=== PATIENT | female | born 2000 | race Two or more races ===

== ENCOUNTER 2024-12-13 16:28 | Emergency (ER) | payer OTHER ==
[~2024-12-13] VITALS: Ht 172.7 cm; Wt 99.8 kg
[2024-12-13] MEDS ORDERED: DEXTROSE 50 % IN WATER 0.5 G/ML VIAL IV ONE (16:57)
[2024-12-13] MEDS ORDERED: 0.9 % SODIUM CHLORIDE 1,000 ML IV ONE (18:15)
[2024-12-13] MEDS ORDERED: KETOROLAC TROMETHAMINE 30 MG VIAL IV ONE (18:15)
[2024-12-13] MEDS ORDERED: ONDANSETRON HCL 2 MG/ML VIAL IV ONE (18:15)
[2024-12-13] MEDS ORDERED: FAMOtidine 10 MG/ML (4ML VIAL) IV ONE (18:15)
[2024-12-13] MEDS ORDERED: CIPROFLOXACIN IN 5 % DEXTROSE 400 MG/200 ML PIGGYBAG IV ONE ×2 (18:15→18:33)
[2024-12-13] MEDS ORDERED: KETOROLAC TROMETHAMINE 30 MG VIAL ONE (18:32)
[2024-12-13] MEDS ORDERED: FAMOTIDINE/PF 20 MG/2 ML VIAL ONE (18:33)
[2024-12-13] MEDS ORDERED: ONDANSETRON HCL 2 MG/ML VIAL ONE (18:33)
[2024-12-13 19:04] LABS: BASO % 0.2 % (0.1-1.2); EOS # 0.03 (0.04-0.54); EOS % 0.3 % (0.7-7.0); LYMPH # 0.42 (1.18-3.74); LYMPH % 3.7 % (19.3-53.1); MEAN PLATELET VOLUME 9.80 fl (9.4-12.4); MONO # 0.54 (0.24-0.82); MONO % 4.7 % (4.7-12.5); NEUT # 10.43 (1.56-6.13); NEUT % 90.8 % (34.0-71.1); RED CELL DISTRIBUTION WIDTH 13.2 % (11.6-14.4)
[2024-12-13 19:34] LABS: ALT/SGPT 39.0 U/L (12-78); AST/SGOT 14.0 U/L (15-37); BILIRUBIN TOTAL 0.53 mg/dL (0.3-1.2); BUN CREA RATIO 20.0 (7.0-25.0); CREATININE SERUM 0.61 mg/dL (0.55-1.02); GFR 119.5; GLOBULINA 3.8 G/DL (2.4-3.5); GLUCOSE FASTING 88.0 mg/dL (65-100); OSMOLALITY SERUM 279.0 MOSM/KG (275-295)
[2024-12-13 19:49] LABS: COVID-19 AG NEGATIVE (NEGATIVE)
[2024-12-13 21:05] LABS: URINE APPEARANCE Cloudy; URINE BILIRRUBIN Negative (NEGATIVE); URINE BLOOD Negative; URINE COLOR Yellow; URINE GLUCOSE Negative (NEGATIVE); URINE KETONE Trace (NEGATIVE); URINE LEUKOCYTE Negative; URINE NITRATE Negative; URINE PROTEIN 30 (NEGATIVE); URINE UROBILINOGEN 0.2 E.U./dl
[2024-12-13 21:10] LABS: URINE RBC 34.7 uL (0.0-20.8); URINE WBC 42.1 uL (0.0-23.2)
[2024-12-13 21:11] LABS: URINE BACTERIA 7118.2 uL (0.0-1933); URINE CAST 1.17 uL (0.0-1.40); URINE EPITHELIAL CELLS 145.6 uL (0.0-38.8)
[2024-12-13] MEDS ORDERED: PEPCID AC20 MG PO (21:49)
[2024-12-13] MEDS ORDERED: ZOFRAN8 MG PO (21:49)
[2024-12-13] MEDS ORDERED: PROBIOTIC1 EAC2 PO (21:49)
[2024-12-13] MEDS ORDERED: CIPRO500 MG PO (21:49)
[2024-12-13] MEDS ORDERED: METRONIDAZOLE500 MG PO (21:49)
[2024-12-13] MEDS ORDERED: LEVSIN/SL0.125 MG SL (21:49)
== END 2024-12-13 22:25 | disposition home or self-care (01) ==
LOC: ER 16:28
PROVIDERS: General Practice
DX: R10.9 Unspecified abdominal pain (principal); R11.2 Nausea with vomiting, unspecified; R19.7 Diarrhea, unspecified; Z20.822 Contact with and (suspected) exposure to COVID-19